=== PATIENT | female | born 1970 | race Two or more races ===

== ENCOUNTER 2021-05-17 13:18 | Inpatient (IN) | payer MEDICARE, MEDICAID ==
[~2021-05-17] VITALS: Ht 162.6 cm; Wt 57.4 kg
[2021-05-17 15:14] LABS: Basophils # (auto) 0.1 10 ^3/uL (0-0.2); Basophils % (auto) 1.5 % (0.0-2.0); Eosinophils # (auto) 0.7 10 ^3/uL (0-0.8); Eosinophils % (auto) 8.2 % (0.0-7.0); Hematocrit 28.7 % (36.0-46.0); Hemoglobin 9.6 g/dL (12.2-16.2); Lymphocytes # (auto) 0.9 10 ^3/uL (0.4-5.4); Lymphocytes % (auto) 11.3 % (10.0-50.0); Mean Corpuscular Hemoglobin 31.9 pg (28.0-32.0); Mean Corpuscular Hgb Conc. 33.5 g/dL (32.0-36.0); Mean Corpuscular Volume 95.4 fL (80.0-100.0); Monocytes # (auto) 0.5 10 ^3/uL (0-1.3); Monocytes % (auto) 5.7 % (0.0-12.0); Neutrophils % (auto) 73.3 % (37.0-80.0); Nucleated Red Blood Cells % 0.1 %; Red Blood Cells 3.01 10^6/uL (4.0-5.20); Red Cell Distribution Width 18.4 % (11.8-14.3); White Blood Cell 8.2 10^3/uL (4.4-10.8)
[2021-05-17 15:32] LABS: Albumin 3.5 g/dL (3.4-5.0)
[2021-05-17 15:37] LABS: BUN/Creatinine Ratio 8.2; Bilirubin, Total 0.7 mg/dL (0.2-1.0); Calcium 9.4 mg/dL (8.5-10.1); Magnesium 3.4 mg/dL (1.6-2.6); Total Protein 8.2 g/dL (6.4-8.2)
[2021-05-17 15:38] LABS: Urine Bacteria FEW /hpf (None Seen); Urine Blood TRACE /uL (Negative); Urine Specific Gravity 1.014 (1.001-1.035); Urine WBC 92 /hpf (0 - 5); Urine WBC Clumps PRESENT /hpf (None Seen)
[2021-05-17 16:00] LABS: Potassium 6.6 mmol/L (3.5-5.1)
[2021-05-17] MEDS ORDERED: ALBUTEROL SULF 2.5 MG/0.5ML(0.5%) NEB SOLN NEB ONE (21:00)
[2021-05-17] MEDS ORDERED: cefTRIAXone 1GM/50ML D5W 50 ML IV ONE (21:00)
[2021-05-17] MEDS ORDERED: InsuLIN REG 1unit/0.01ml Soln (100units/ml) IV ONE (21:00)
[2021-05-17] MEDS ORDERED: SODIUM BICARBONATE 8.4 % INJ 50ML VIAL IV ONE (21:00)
[2021-05-17] MEDS ORDERED: CALCIUM GLUC 1,000mg/50ml-NS 50 ML IV ONE (21:00)
[2021-05-17] MEDS ORDERED: ACETAMINOPHEN 325 MG TAB PO PRN (21:00)
[2021-05-17] MEDS ORDERED: AZITHROMYCIN 500MG/ 250ML 250 ML IV ONE (21:00)
[2021-05-17] MEDS ORDERED: DEXTROSE (50%) 50ML SYRG IV ONE (21:00)
[2021-05-17] MEDS ORDERED: SODIUM ZIRCONIUM CYCL 10 GM PAK PO ONE (21:00)
[2021-05-17] MEDS ORDERED: MORPHINE SULFATE INJECTION 2 MG/ML SYRG IV PRN (21:00)
[2021-05-17] MEDS ORDERED: ONDANSETRON HCL 4 MG/2 ML VIAL IV PRN (21:00)
[2021-05-17] MEDS ORDERED: FUROSEMIDE 40 MG/4 ML VIAL IV ONE (21:00)
[2021-05-17] MEDS ORDERED: cloNIDine HCL 0.1 MG TAB PO PRN (21:00)
[2021-05-17] MEDS ORDERED: NITROGLYCERIN 0.4 MG SL TAB SL PRN (21:00)
[2021-05-17] MEDS ORDERED: DEXTROSE (50%) 50ML SYRG IV PRN (22:30)
[2021-05-17] MEDS ORDERED: PANT1INJ3 IV (22:54)
[2021-05-17] MEDS ORDERED: METO5TAB2 PO (22:54)
[2021-05-17] MEDS ORDERED: LOSA-39 PO (22:54)
[2021-05-17] MEDS ORDERED: ATOR20TA50 PO (22:54)
[2021-05-17] MEDS ORDERED: ACE3T PO (22:54)
[2021-05-17] MEDS ORDERED: SERT50TA19 PO (22:54)
[2021-05-17] MEDS ORDERED: ONDA-144 PO (22:54)
[2021-05-17] MEDS ORDERED: ACETAMINOPHEN/CODEINE#3 (300/30mg) TAB PO PRN (23:00)
[2021-05-17 23:15] VITALS: BP 157/72
[2021-05-17 23:22] VITALS: BP 157/72
[2021-05-18] MEDS ORDERED: AMLO-496 PO (00:42)
[2021-05-18] MEDS ORDERED: INFLUENZA QUAD 2021-2022 0.5 ML SYRG IM ONE (00:45)
[2021-05-18] MEDS ORDERED: PNEUMOCOCCAL VACC POLYS 25 MCG/0.5 ML VIAL IM ONE (00:45)
[2021-05-18 05:00] VITALS: BP 150/78
[2021-05-18 06:32] LABS: Basophils # (auto) 0.1 10 ^3/uL (0-0.2); Basophils % (auto) 1.1 % (0.0-2.0); Eosinophils # (auto) 0.2 10 ^3/uL (0-0.8); Eosinophils % (auto) 1.9 % (0.0-7.0); Hematocrit 26.3 % (36.0-46.0); Hemoglobin 8.7 g/dL (12.2-16.2); Lymphocytes # (auto) 0.6 10 ^3/uL (0.4-5.4); Lymphocytes % (auto) 8.1 % (10.0-50.0); Mean Corpuscular Hemoglobin 32.1 pg (28.0-32.0); Mean Corpuscular Hgb Conc. 33.1 g/dL (32.0-36.0); Monocytes # (auto) 0.6 10 ^3/uL (0-1.3); Monocytes % (auto) 7.3 % (0.0-12.0); Neutrophils # (auto) 6.5 10 ^3/uL (1.6-8.6); Neutrophils % (auto) 81.6 % (37.0-80.0); Red Blood Cells 2.72 10^6/uL (4.0-5.20); Red Cell Distribution Width 18.2 % (11.8-14.3); White Blood Cell 7.9 10^3/uL (4.4-10.8)
[2021-05-18] MEDS: METOCLOPRAMIDE HCL 10 MG TAB PO SCH ×4 (06:46→22:05)
[2021-05-18] MEDS: InsuLIN REG 1unit/0.01ml Soln (100units/ml) SC SCH ×4 (06:47→22:00)
[2021-05-18] MEDS: ACCU-CHEK COMFORT CURVE STRIP VI SCH ×4 (06:47→22:05)
[2021-05-18 06:54] LABS: Albumin 3.2 g/dL (3.4-5.0); Calcium 8.8 mg/dL (8.5-10.1)
[2021-05-18 06:59] LABS: BUN/Creatinine Ratio 8.3; Bilirubin, Total 0.6 mg/dL (0.2-1.0); Total Protein 6.9 g/dL (6.4-8.2)
[2021-05-18 07:51] LABS: Potassium 6.2 mmol/L (3.5-5.1)
[2021-05-18] MEDS: SEVELAMER 800 MG TAB PO SCH ×3 (07:53→18:58)
[2021-05-18 09:00] VITALS: BP 160/81
[2021-05-18] MEDS: cefTRIAXone 1GM/50ML D5W 50 ML IV SCH (09:00)
[2021-05-18] MEDS: ATORVASTATIN 20 MG TAB PO SCH (09:52)
[2021-05-18] MEDS: PANTOPRAZOLE 40 MG TAB PO SCH (09:52)
[2021-05-18] MEDS: AZITHROMYCIN 500MG/ 250ML 250 ML IV SCH (09:52)
[2021-05-18] MEDS ORDERED: amLODIPine BESYLATE 5 MG TAB PO SCH (10:00)
[2021-05-18] MEDS: LOSARTAN POTASSIUM 50 MG TAB PO SCH (10:30)
[2021-05-18] MEDS: amLODIPine BESYLATE 5 MG TAB PO SCH (10:31)
[2021-05-18] MEDS: SERTRALINE HCL 50 MG TAB PO SCH (10:31)
[2021-05-18] MEDS ORDERED: SODIUM ZIRCONIUM CYCL 10 GM PAK PO ONE (14:00)
[2021-05-18] MEDS ORDERED: cloNIDine HCL 0.1 MG TAB PO PRN (14:15)
[2021-05-18] MEDS ORDERED: ERGOCALCIFEROL 50,000 UNIT(1.25MG) CAP PO SCH (16:45)
[2021-05-18 16:54] VITALS: BP 134/65
[2021-05-18 22:00] VITALS: BP 122/60
[2021-05-19 04:55] VITALS: BP 140/71
[2021-05-19] MEDS: ACCU-CHEK COMFORT CURVE STRIP VI SCH ×2 (06:30→11:47)
[2021-05-19] MEDS: InsuLIN REG 1unit/0.01ml Soln (100units/ml) SC SCH ×2 (06:31→11:30)
[2021-05-19] MEDS: METOCLOPRAMIDE HCL 10 MG TAB PO SCH ×2 (06:32→12:15)
[2021-05-19 06:53] LABS: Basophils # (auto) 0.1 10 ^3/uL (0-0.2); Basophils % (auto) 1.7 % (0.0-2.0); Eosinophils # (auto) 0.9 10 ^3/uL (0-0.8); Eosinophils % (auto) 14.6 % (0.0-7.0); Hematocrit 25.9 % (36.0-46.0); Hemoglobin 8.8 g/dL (12.2-16.2); Lymphocytes % (auto) 16.6 % (10.0-50.0); Mean Corpuscular Hemoglobin 32.6 pg (28.0-32.0); Mean Corpuscular Hgb Conc. 33.9 g/dL (32.0-36.0); Mean Corpuscular Volume 96.2 fL (80.0-100.0); Monocytes # (auto) 0.4 10 ^3/uL (0-1.3); Monocytes % (auto) 7.5 % (0.0-12.0); Neutrophils # (auto) 3.5 10 ^3/uL (1.6-8.6); Neutrophils % (auto) 59.6 % (37.0-80.0); Red Blood Cells 2.69 10^6/uL (4.0-5.20); White Blood Cell 5.9 10^3/uL (4.4-10.8)
[2021-05-19 07:12] LABS: Potassium 4.9 mmol/L (3.5-5.1)
[2021-05-19 07:26] LABS: BUN/Creatinine Ratio 7.1; Calcium 9.6 mg/dL (8.5-10.1)
[2021-05-19] MEDS: SEVELAMER 800 MG TAB PO SCH ×2 (08:15→12:15)
[2021-05-19] MEDS: AZITHROMYCIN 500MG/ 250ML 250 ML IV SCH (08:16)
[2021-05-19] MEDS: cefTRIAXone 1GM/50ML D5W 50 ML IV SCH (08:16)
[2021-05-19] MEDS: ATORVASTATIN 20 MG TAB PO SCH (08:17)
[2021-05-19] MEDS: LOSARTAN POTASSIUM 50 MG TAB PO SCH (08:17)
[2021-05-19] MEDS: amLODIPine BESYLATE 5 MG TAB PO SCH (08:18)
[2021-05-19] MEDS: SERTRALINE HCL 50 MG TAB PO SCH (08:18)
[2021-05-19] MEDS: PANTOPRAZOLE 40 MG TAB PO SCH (08:18)
[2021-05-19 08:32] VITALS: BP 153/80
[2021-05-19 13:00] VITALS: BP 154/70
== END 2021-05-19 15:24 | disposition left against medical advice (07) | DRG 193 ==
LOC: ER 13:18 → TELE 20:59 → TELE-EAST 23:23 → TELE-CENTR 05-18 12:57
PROVIDERS: ADMIT Nurse Practitioner; ATTEND Nurse Practitioner
PROC: 5A1D70Z Performance of Urinary Filtration, Intermittent, Less than 6 Hours Per Day (ICD-10-PCS; principal; 2021-05-18)
DX: J18.9 Pneumonia, unspecified organism (principal); N18.6 End stage renal disease; J90 Pleural effusion, not elsewhere classified; N39.0 Urinary tract infection, site not specified; I12.0 Hypertensive chronic kidney disease with stage 5 chronic kidney disease or end stage renal disease; N25.81 Secondary hyperparathyroidism of renal origin; E87.5 Hyperkalemia; E87.70 Fluid overload, unspecified; D63.1 Anemia in chronic kidney disease; E83.39 Other disorders of phosphorus metabolism; E11.22 Type 2 diabetes mellitus with diabetic chronic kidney disease; E55.9 Vitamin D deficiency, unspecified; Z20.822 Contact with and (suspected) exposure to COVID-19; Z99.2 Dependence on renal dialysis
CPT/HCPCS: 36415; 71045; 80048; 80053; 81001; 82306; 82962; 83036; 83735; 83880; 83970; 84443; 84484; 85025; 87081; 87340; 87426; 94644; 96365; 96375; G0378; J0696; J1815

== ENCOUNTER 2021-06-25 12:01 | Emergency (ER) | payer MEDICARE, MEDICAID ==
[~2021-06-25] VITALS: Ht 162.6 cm; Wt 72.6 kg
[~2021-06-25 12:01] MED LIST: ACE3T PO; AMLO-496 PO; ATOR20TA50 PO; LOSA-39 PO; METO5TAB2 PO; ONDA-144 PO; PANT1INJ3 IV; SERT50TA19 PO
[2021-06-25 12:18] VITALS: BP 147/64
[2021-06-25] MEDS ORDERED: ONDANSETRON ODT 4 MG TAB PO ONE (14:30)
[2021-06-25] MEDS ORDERED: HYDROcodone-ACET 10/325MG TAB PO ONE (17:30)
== END 2021-06-25 22:06 | disposition home or self-care (01) ==
LOC: ER 12:01
DX: K29.70 Gastritis, unspecified, without bleeding (principal); K59.00 Constipation, unspecified; I12.0 Hypertensive chronic kidney disease with stage 5 chronic kidney disease or end stage renal disease; E11.22 Type 2 diabetes mellitus with diabetic chronic kidney disease; N18.6 End stage renal disease; Z79.899 Other long term (current) drug therapy
CPT/HCPCS: 74176; 99284; Q0162

== ENCOUNTER → 2021-06-29 | Emergency (ER) | payer MEDICARE, MEDICAID ==
[~2021-06-29] VITALS: Ht 160 cm; Wt 77.1 kg
[2021-06-29 16:37] VITALS: BP 189/90
== END | disposition left against medical advice (07) ==
LOC: ER 16:37
DX: R42 Dizziness and giddiness (principal); Z53.21 Procedure and treatment not carried out due to patient leaving prior to being seen by health care provider